=== PATIENT | female | born 1955 | race Caucasian/White ===

== ENCOUNTER 2017-12-29 19:42 | Emergency (ER) | payer MEDICARE | END 2017-12-29 20:44 | disposition left against medical advice (07) | LOC: ED 19:42 | DX: Z53.21 Procedure and treatment not carried out due to patient leaving prior to being seen by health care provider (principal) | CPT/HCPCS: 99283 ==

== ENCOUNTER 2018-12-18 08:01 | Day surgery (SDC) | payer MEDICARE ==
[2018-12-18] MEDS ORDERED: Xylocaine-Mpf 2% 5 Ml Vial IJ ONE (08:02)
[2018-12-18] MEDS ORDERED: DIPRIVAN 200 MG/20 ML IV ONE (08:02)
[2018-12-18] MEDS ORDERED: Depo-Medrol 40 MG/ML IM ONE (08:02)
--- NOTE | 2018-12-18 10:41 | XRAY ---
Indication: Left C3-C6 ROX. Intraoperative fluoroscopy was provided for 40 seconds. Single frontal digital spot image of the upper cervical spine submitted for interpretation limited by motion artifact and a few dental amalgams. There is a spinal needle tip projecting over the base of the odontoid process. Correlate with intraoperative findings/report.
--- NOTE | 2018-12-18 11:12 | XRAY ---
40 seconds fluoroscopy time in surgery for left C3-C6 ROX.
[2018-12-18] MEDS ORDERED: Lactated Ringers 1,000 ML IV ONE (14:28)
== END 2018-12-18 10:12 | disposition home or self-care (01) ==
LOC: SDC-PAIN 08:01
PROVIDERS: ATTEND Psychiatry & Neurology Pain Medicine
DX: M54.12 Radiculopathy, cervical region (principal); M47.812 Spondylosis without myelopathy or radiculopathy, cervical region; M47.892 Other spondylosis, cervical region; E11.9 Type 2 diabetes mellitus without complications; E05.00 Thyrotoxicosis with diffuse goiter without thyrotoxic crisis or storm; M19.90 Unspecified osteoarthritis, unspecified site; M79.7 Fibromyalgia
CPT/HCPCS: 64490; 64491; 64492; 72020; 77003; 82962; J1030; J2704

== ENCOUNTER 2019-10-15 09:35 | Day surgery (SDC) | payer MEDICARE ==
[2019-10-15] MEDS ORDERED: Decadron 4 MG INJ IJ ONE (09:36)
[2019-10-15] MEDS ORDERED: Marcaine 0.5% SDV 10 ML IJ ONE (09:36)
[2019-10-15] MEDS ORDERED: DIPRIVAN 200 MG/20 ML IV ONE (10:34)
[2019-10-15] MEDS ORDERED: Ketamine HCl 50 MG/ML ONE (10:34)
--- NOTE | 2019-10-15 12:25 | XRAY ---
Indication: Left C3-C6 MBB. Intraoperative fluoroscopy was provided for 18 seconds. 2 digital spot images submitted for interpretation demonstrates posterior needle tips projecting over the expected course of the left C3-C6 nerve roots. Correlate with intraoperative findings/report.
--- NOTE | 2019-10-15 12:38 | XRAY ---
18 seconds fluoroscopy time in surgery for left C3-C6 MBB.
[2019-10-15] MEDS ORDERED: Lactated Ringers 1,000 ML IV ONE (16:16)
== END 2019-10-15 11:05 | disposition home or self-care (01) ==
LOC: SDC-PAIN 09:35
PROVIDERS: ATTEND Psychiatry & Neurology Pain Medicine
DX: M47.812 Spondylosis without myelopathy or radiculopathy, cervical region (principal); I10 Essential (primary) hypertension; E11.9 Type 2 diabetes mellitus without complications; E05.90 Thyrotoxicosis, unspecified without thyrotoxic crisis or storm; G70.00 Myasthenia gravis without (acute) exacerbation; M79.7 Fibromyalgia; Z79.899 Other long term (current) drug therapy
CPT/HCPCS: 72020; 77002; J1100; J2704

== ENCOUNTER 2020-07-28 09:43 | Day surgery (SDC) | payer MEDICARE ==
[2020-07-28] MEDS ORDERED: Decadron 4 MG INJ IV ONE (09:44)
[2020-07-28] MEDS ORDERED: LIDOCAINE HCL 2% 100 MG/5 ML IJ ONE (09:44)
[2020-07-28] MEDS ORDERED: Ketamine HCl 50 MG/ML ONE (11:46)
[2020-07-28] MEDS ORDERED: DIPRIVAN 200 MG/20 ML IV ONE (11:46)
[2020-07-28] MEDS ORDERED: Lactated Ringers 1,000 ML IV ONE (15:30)
== END 2020-07-28 12:20 | disposition home or self-care (01) ==
LOC: SDC-PAIN 09:43
PROVIDERS: ATTEND Psychiatry & Neurology Pain Medicine
DX: Z53.09 Procedure and treatment not carried out because of other contraindication (principal); M47.812 Spondylosis without myelopathy or radiculopathy, cervical region; E11.9 Type 2 diabetes mellitus without complications; I10 Essential (primary) hypertension; G70.00 Myasthenia gravis without (acute) exacerbation; E05.90 Thyrotoxicosis, unspecified without thyrotoxic crisis or storm; M79.7 Fibromyalgia; Z79.899 Other long term (current) drug therapy
CPT/HCPCS: 64490; 64491; 64492; 82962; J1100; J2704

== ENCOUNTER 2020-08-04 10:08 | Day surgery (SDC) | payer MEDICARE ==
[~2020-08-04 10:08] MED LIST: DIPRIVAN 200 MG/20 ML IV ONE; Ketamine HCl 50 MG/ML ONE
[2020-08-04] MEDS ORDERED: Decadron 4 MG INJ IV ONE (10:09)
[2020-08-04] MEDS ORDERED: Xylocaine-Mpf 2% 5 Ml Vial IJ ONE (10:09)
--- NOTE | 2020-08-04 12:01 | XRAY ---
Indication: Right C3-C6 MBB. Intraoperative fluoroscopy was provided for 54 seconds. 3 digital spot images submitted for interpretation demonstrates posterior needle tips projecting over the expected right C3-C6 nerve roots. Correlate with intraoperative findings/report.
--- NOTE | 2020-08-04 12:58 | XRAY ---
54 seconds fluoroscopy time in surgery for right C3-C6 MBB.
[2020-08-04] MEDS ORDERED: Lactated Ringers 1,000 ML IV ONE (15:10)
== END 2020-08-04 11:38 | disposition home or self-care (01) ==
LOC: SDC-PAIN 10:08
PROVIDERS: ATTEND Psychiatry & Neurology Pain Medicine
DX: M47.812 Spondylosis without myelopathy or radiculopathy, cervical region (principal); E11.9 Type 2 diabetes mellitus without complications; I10 Essential (primary) hypertension; G70.00 Myasthenia gravis without (acute) exacerbation; E05.90 Thyrotoxicosis, unspecified without thyrotoxic crisis or storm; M79.7 Fibromyalgia; Z79.899 Other long term (current) drug therapy
CPT/HCPCS: 36415; 64490; 64491; 64492; 72020; 77002; 82962; J1100; J2704

== ENCOUNTER 2021-01-26 09:04 | Day surgery (SDC) | payer MEDICARE ==
[2021-01-26] MEDS ORDERED: Decadron 4 MG INJ IV ONE (09:05)
[2021-01-26] MEDS ORDERED: BUPIVACAINE 0.5% VIAL IJ ONE (09:05)
[2021-01-26] MEDS ORDERED: DIPRIVAN 200 MG/20 ML IV ONE (10:55)
[2021-01-26] MEDS ORDERED: Ketamine HCl 50 MG/ML ONE (10:56)
[2021-01-26] MEDS ORDERED: BREVIBLOC 100 MG/10 ML IV ONE (11:07)
[2021-01-26] MEDS ORDERED: LOPRESSOR 5 MG/5 ML INJECTION IV ONE (11:32)
--- NOTE | 2021-01-26 12:01 | XRAY ---
Indication: Right C2-C5 MBB. Intraoperative fluoroscopy provided for 41 seconds. 3 digital spot images submitted for interpretation demonstrates 2 posterior needle tips projecting over the right upper cervical spine. Needle tip levels unknown due to suboptimal technique. Correlate with intraoperative findings/report.
--- NOTE | 2021-01-26 12:11 | XRAY ---
41 seconds fluoroscopy time in surgery for right C2-C5 MBB.
[2021-01-26] MEDS ORDERED: Sodium Chloride 0.9% 1000 ML 1,000 ML ONE (12:26)
[2021-01-26 12:42] LABS: Absolute Neutrophil Ct (ANC) 7.03 (1.4-6.9); BASOPHIL % 0.2 % (0.0-0.4); Basophil (Absolute #) 0.02 (0-0.4); Eosinophil % 3.2 % (0.00-5.0); Eosinophil (Absolute #) 0.35 (0-0.5); Hematocrit 38.4 % (35-47); Hemoglobin 12.5 gm/dl (12.0-16.0); Lymphocyte (Absolute #) 3.06 (1.0-4.6); Lymphocytes % 27.8 % (24.0-44.0); Mean Cell Volume 105.8 fl (78-100); Mean Corpuscular Hemoglobin 34.4 pg (26-32); Mean Corpuscular Hgb Concent. 32.6 g/dl (32-36); Monocyte (Absolute #) 0.54 (0.0-1.3); Monocytes % 4.9 % (0.0-12.0); Neutrophil % 63.9 % (36.0-66.0); Platelet Count 319 K/mm3 (150-450); Red Blood Count 3.63 M/mm3 (4.1-5.4); Red Cell Distribution Width 12.9 % (11.5-14.0)
[2021-01-26 13:06] LABS: ALKALINE PHOSPHATASE 81 U/L (38-126); ANION GAP 8.4 MEQ/L (5-15); BLOOD UREA NITROGEN 21 mg/dL (7-17); CHLORIDE 107 mmol/L (98-107); Calcium 9.3 mg/dL (8.4-10.2); Carbon Dioxide 26 mmol/L (22-30); Creatinine 1 1.05 mg/dL (0.52-1.04); EST GLOMERULAR FILTRATION RATE 55.9 ML/MIN; Glucose 127 mg/dL (74-106); Potassium 4.4 mmol/L (3.5-5.1); SGOT/AST 27 U/L (14-36); SGPT/ALT 11 U/L (0-35); SODIUM 137 mmol/L (137-145); TROPONIN < 0.012 ng/mL (0.000-0.034); Total Protein 6.9 g/dL (6.3-8.2)
[2021-01-26 14:49] LABS: INFLUENZA A NEGATIVE (NEGATIVE); INFLUENZA B NEGATIVE (NEGATIVE); RESPIRATORY SYNCTIAL VIRUS NEGATIVE (Negative)
[2021-01-26] MEDS ORDERED: Lactated Ringers 1,000 ML IV ONE (15:01)
== END 2021-01-26 13:03 | disposition still patient (30) ==
LOC: SDC-PAIN 09:04
PROVIDERS: ATTEND Psychiatry & Neurology Pain Medicine
DX: M47.812 Spondylosis without myelopathy or radiculopathy, cervical region (principal); I10 Essential (primary) hypertension; E11.9 Type 2 diabetes mellitus without complications; E03.9 Hypothyroidism, unspecified; M79.7 Fibromyalgia; G70.00 Myasthenia gravis without (acute) exacerbation; Z79.899 Other long term (current) drug therapy
CPT/HCPCS: 0241U; 36415; 64490; 64491; 72020; 77002; 80053; 82947; 84443; 84484; 85025; 93005; 94760; J1100; J2704

== ENCOUNTER 2021-01-26 12:29 | Observation (INO) | payer MEDICARE ==
[2021-01-26] MEDS: Sodium Chloride 0.9% 1000 ML 1,000 ML IV SCH ×2 (14:27→21:32)
[2021-01-26] MEDS ORDERED: VENTOLIN COMMON CANISTER IH PRN (14:56)
[2021-01-26] MEDS ORDERED: PATIENT OWN MEDICATION IH PRN (14:58)
[2021-01-26] MEDS ORDERED: NON-FORMULARY ITEM (Gabapentin [Gabapentin] 800 MG) PO SCH (15:00)
[2021-01-26] MEDS ORDERED: hydroDIURIL 25 MG PO SCH (15:00)
[2021-01-26] MEDS: PERCOCET TABLET 5/325MG PO SCH ×3 (15:22→21:31)
[2021-01-26] MEDS: SYNTHROID 125 MCG PO SCH (15:23)
[2021-01-26] MEDS: ECOTRIN 81 MG PO SCH (15:24)
[2021-01-26] MEDS: Cardizem 30 MG PO SCH ×2 (15:25→21:31)
[2021-01-26] MEDS: Neurontin 400 MG PO SCH ×2 (15:25→21:31)
[2021-01-26] MEDS: ENOXAPARIN SODIUM SQ SCH (15:26)
[2021-01-26] MEDS: Zestril 20 MG PO SCH (15:28)
[2021-01-26] MEDS ORDERED: NON-FORMULARY ITEM (Oxycodone Hcl/Acetaminophen [Oxycodon-Acetaminophen 7.5-325] 1 EACH) PO SCH (17:00)
[2021-01-26] MEDS ORDERED: Zocor 10MG PO SCH (18:00)
[2021-01-26] MEDS ORDERED: NON-FORMULARY ITEM (Simvastatin [Simvastatin] 80 MG) PO SCH (18:00)
[2021-01-26] MEDS ORDERED: PATIENT OWN MEDICATION IH SCH (19:00)
[2021-01-26] MEDS ORDERED: FLUTICASONE PROPIONATE IH SCH (22:00)
[2021-01-27] MEDS: PATIENT OWN MEDICATION IH SCH ×2 (06:35→06:48)
[2021-01-27 07:15] VITALS: PULSE 74
--- NOTE | 2021-01-27 07:46 | ECHO ---
Transthoracic echocardiographic examination and color Doppler was done on 01/26/2021. INDICATION: New onset of atrial fibrillation. The left ventricle was only partially visualized demonstrating mild left ventricular hypokinesia with LV ejection fraction around 50%. The left ventricular thickness is normal. The mitral valve is partially seen but this opens adequately. No significant mitral regurgitation is seen. The aortic valve appears to open adequately. There is no significant gradient across the left ventricular outflow tract. The right sided chambers appear to be normal. No significant tricuspid regurgitation is seen. IMPRESSION: THIS IS A FAIRLY LIMITED STUDY WHICH PRECLUDES ADEQUATE ASSESSMENT OF INTRACARDIAC ANATOMY AND PHYSIOLOGY.
--- NOTE | 2021-01-27 08:47 | PCM.HP ---
History of Present Illness - Chief Complaint Chief Complaint: new onset afib History of Present Illness: is a 65 year old female who was admitted yesterday, she was having an epidural steroid injection in surgery and found to have abnormal heart rhythm. she has no cardiac history and has never seen a solar technician, no chest pain, no shortness of breath and feels normal. ekg was apparently done and suggestive of a fib, was sent to the floor. currently receiving po cardizem and prophylactic dose of lovenox, she has no complaints today. - Review of Systems Constitutional: No Fever, No Chills Respiratory: No Cough, No Short Of Breath Cardiac: No Chest Pain, No Edema, No Syncope Abdominal/Gastrointestinal: No Abdominal Pain, No Nausea, No Vomiting, No Diarrhea Skin: No Rash Medications & Allergies Home Medications: Home Medication List Albuterol Common Canister [Ventolin Common Canister] 2 puff IH Q4H PRN 01/26/21 [History Confirmed 01/26/21] Aspirin [Aspirin EC] 81 mg PO DAILY 01/26/21 [History Confirmed 01/26/21] Fluticasone Propionate [Flovent Diskus] 2 puff IH BID 01/26/21 [History C onfirmed 01/26/21] Gabapentin 800 mg PO TID 01/26/21 [History Confirmed 01/26/21] Levothyroxine Sodium [Synthroid] 125 mcg PO DAILY 01/26/21 [History Confirmed 01/26/21] Lisinopril/Hydrochlorothiazide [Lisinopril-Hctz 20-25 mg Tab] 1 each PO DAILY 01/26/21 [History Confirmed 01/26/21] Metformin HCl 500 mg PO BID 01/26/21 [History Confirmed 01/26/21] Oxycodone HCl/Acetaminophen [Oxycodon-Acetaminophen 7.5-325] 1 each PO QID 01/26/21 [History Confirmed 01/26/21] Simvastatin 80 mg PO EVENING MEAL 01/26/21 [History Confirmed 01/26/21] Allergies/Adverse Reactions: Allergies Allergy/AdvReac Type Severity Reaction Status Date / Time No Known Drug Allergies Allergy Unverified 01/26/21 13:42 - Past Medical History Past Medical History: No Neurological History: No Pertinent History ENT History: No Pertinent History Cardiac History: No Pertinent History Respiratory History: No Pertinent History Endocrine Medical History: Diabetes Type II, Hypothyroidism Musculoskelatal History: No Pertinent History GI Medical History: No Pertinent History History: No Pertinent History Pyscho-Social History: No Pertinent History Reproductive Disorders: No Pertinent History Comment: precancerous pap - Female History Are you now?: No - Past Surgical History Past Surgical History: Yes Other Surgical History: parathyroid removal - Social History Smoking Status: Current every day smoker Alcohol: None Drug Use: none - Physical Exam Vital Signs: Vital Signs - 24 hr Temp Pulse Resp BP Pulse Ox 01/27/21 07:15 98 F 74 20 116/79 96 01/27/21 06:50 70 18 95 01/27/21 04:30 98.0 F 79 19 85/54 97 01/27/21 00:00 98.0 F 97 H 21 128/62 96 01/26/21 20:00 97.8 F 90 20 124/58 96 01/26/21 17:46 90 18 96 01/26/21 15:13 96 H 18 96 01/26/21 14:14 97.7 F 101 H 18 137/83 96 01/26/21 13:06 97.7 F 101 H 18 137/83 96 General Appearance: no apparent distress, obese Neurologic Exam: alert, oriented x 3, cooperative Respiratory Exam: normal breath sounds, lungs clear, No respiratory distress Cardiovascular Exam: irregular, No murmur, No friction rub, No gallop Gastrointestinal/Abdomen Exam: soft, normal bowel sounds, No tenderness, No mass Skin Exam: normal color, warm, dry, No rash Results - Radiology Impressions Radiology Exams & Impressions: Radiology Procedures Category Date Time Status ECHO W/2D AND DOPPLER [US] Routine Exams 01/26/21 12:51 Draft - Other Procedures and Tests Respiratory Therapy 01/26/21 15:09 Respiratory Therapy Assessment DAILY 01/26/21 15:12 Respiratory MDI UD Respiratory MDI UD 01/27/21 08:40 EKG ROUTINE Assessment/Plan (1) Mobitz type 2 second degree atrioventricular block Current Visit: Yes Status: Acute Assessment & Plan: ekg reviewed from 01/26 at 11:37, p wave appear present with several random nonconducted p waves, no progressive prolongation of ME interval prior to dropped beat. ekg reviewed from 01/26 at 11:18 and suggests sinus tachycardia to me. I do not believe Ms Alex is in a fib, echo is pending. plan to consult [facility] for review Code(s): I44.1 - ATRIOVENTRICULAR BLOCK, SECOND DEGREE
[2021-01-27] MEDS: Cardizem 30 MG PO SCH (09:16)
[2021-01-27] MEDS: ECOTRIN 81 MG PO SCH (09:16)
[2021-01-27] MEDS: SYNTHROID 125 MCG PO SCH (09:17)
[2021-01-27] MEDS: Neurontin 400 MG PO SCH (09:17)
[2021-01-27] MEDS: Zestril 20 MG PO SCH (09:17)
[2021-01-27] MEDS: PERCOCET TABLET 5/325MG PO SCH ×2 (09:17→13:17)
[2021-01-27] MEDS: ENOXAPARIN SODIUM SQ SCH (09:18)
[2021-01-27] MEDS ORDERED: NON-FORMULARY ITEM (Lisinopril/Hydrochlorothiazide [Lisinopril-Hctz 20-25 Mg Tab] 1 EACH) PO SCH (10:00)
[2021-01-27 11:49] VITALS: BP 129/62; O2SAT 95
--- NOTE | 2021-01-27 14:16 | PCM.DS ---
Discharge Summary Date of Admission: 01/26/21 13:03 Admitting Physician: MILENA SHAHID Consults: Consults on Case 01/27/21 08:48 Consult Cardiology ROUTINE Primary Care Provider: MILENA SHAHID Allergies Allergies No Known Drug Allergies Allergy (Unverified 01/26/21 13:42) Hospital Summary - Hospital Course Hospital Course: patient was admitted with abnormal heart rhythm following injection with PMG, denies chest pain, no shortness of breath, feels well. in a flutter, rate controlled with cardizem and on eliquis. plan for outpatient sleep study and FABIO/cardioversion per cardiology recommendation - Vitals & Intake/Output Vital Signs: Vital Signs Temperature 98.1 F 01/27/21 11:49 Pulse Rate 74 01/27/21 11:49 Respiratory Rate 21 01/27/21 11:49 Blood Pressure 129/62 01/27/21 11:49 O2 Sat by Pulse Oximetry 95 01/27/21 11:49 Intake & Output: Intake & Output 01/25/21 01/26/21 01/27/21 01/28/21 11:59 11:59 11:59 11:59 Intake Total 1892 240 Output Total 600 Balance 1292 240 Weight 103.5 kg - Lab Lab Results-Last 24 Hrs: Lab Results-Last 24 Hours 01/27/21 Range/Units 09:30 Free T4 1.05 (0.76-1.46) ng/dL - Radiology Exams Ordered Rad Exams-Entire Visit: Radiology Procedures Category Date Time Status ECHO W/2D AND DOPPLER [US] Routine Exams 01/26/21 12:51 Completed - Procedures and Test Procedures and Tests throughout Hospitalization: Therapy Orders & Screens 01/26/21 14:24 Smoking Cessation Education ONCE Comment: Diagnosis: new onset afib Smoking Status: Current every day smoker Approximately how many cigarettes per day: 10 01/26/21 15:09 Respiratory Therapy Assessment DAILY Comment: Diagnosis: new onset afib 01/26/21 15:12 Respiratory MDI UD Comment: Diagnosis: new onset afib Respiratory MDI UD Comment: Diagnosis: new onset afib 01/27/21 08:40 EKG ROUTINE Comment: Diagnosis: new onset afib Discharge Exam General Appearance: no apparent distress, obese Respiratory Exam: normal breath sounds, lungs clear, No respiratory distress Cardiovascular Exam: irregular Gastrointestinal/Abdomen Exam: soft, No tenderness, No mass Extremity Exam: normal inspection, normal range of motion Final Diagnosis/Problem List - Final Discharge Diagnosis/Problem (1) Atrial flutter Current Visit: Yes Status: Acute Assessment & Plan: home on cardizem and eliquis, will f/u with cardiology. bp was slightly low overnight, change from lisinopril/hctz to lisinopril alone Code(s): I48.92 - UNSPECIFIED ATRIAL FLUTTER (2) Hypothyroid Current Visit: Yes Status: Acute Assessment & Plan: tsh was elevated, increase synthroid from 125 to 150mcg, will need repeat labs in 6 to [address] Shahid Code(s): E03.9 - HYPOTHYROIDISM, UNSPECIFIED - Discharge Disposition: Home, Self-Care Condition: Stable Prescriptions: New Diltiazem HCl 30 mg [Cardizem 30 MG] 60 mg PO BID #60 tablet Levothyroxine Sodium 150 Mcg [Synthroid 150 Mcg] 150 mcg PO QAM #30 tablet Lisinopril 20 mg [Zestril 20 MG] 20 mg PO DAILY #30 tablet Continue Gabapentin 800 mg PO TID Fluticasone Propionate [Flovent Diskus] 2 puff IH BID Albuterol Common Canister [Ventolin Common Canister] 2 puff IH Q4H PRN PRN Reason: sob Oxycodone HCl/Acetaminophen [Oxycodon-Acetaminophen 7.5-325] 1 each PO QID Simvastatin 80 mg PO EVENING MEAL Discontinued Lisinopril/Hydrochlorothiazide [Lisinopril-Hctz 20-25 mg Tab] 1 each PO DAILY Levothyroxine Sodium [Synthroid] 125 mcg PO DAILY Aspirin [Aspirin EC] 81 mg PO DAILY No Action Metformin HCl 500 mg PO BID Outpatient Orders: Sleep Study Facility: [facility], Location: RESPIRATORY THERAPY Follow up with: MILENA SHAHID [Primary Care Provider] - 1 Week PERLA ADAM [CONSULTING PHYSICIAN] -
[2021-01-27] MEDS ORDERED: PATIENT OWN MEDICATION IH SCH (19:00)
[2021-01-27] MEDS ORDERED: ELIQUIS 2.5 MG TABLET PO SCH (22:00)
[2021-01-28] MEDS ORDERED: PATIENT OWN MEDICATION IH SCH (07:00)
[2021-01-28] MEDS ORDERED: SYNTHROID 150 MCG PO SCH (10:00)
== END 2021-01-27 15:51 | disposition home or self-care (01) ==
LOC: MED SURG 13:03
PROVIDERS: ADMIT Family Medicine; ATTEND Family Medicine
DX: I48.92 Unspecified atrial flutter (principal); I44.1 Atrioventricular block, second degree; E03.9 Hypothyroidism, unspecified; Z79.899 Other long term (current) drug therapy; E11.9 Type 2 diabetes mellitus without complications; E78.5 Hyperlipidemia, unspecified; G47.10 Hypersomnia, unspecified; E66.9 Obesity, unspecified; Z79.01 Long term (current) use of anticoagulants
CPT/HCPCS: 0241U; 36415; 64490; 64491; 72020; 77002; 80053; 82947; 84439; 84443; 84484; 85025; 93005; 93268; 93306; 94640; 94760; G0378; Q3014; J1100; J1650; J2704; A9270-GY

== ENCOUNTER 2021-02-04 07:48 | Emergency (ER) | payer MEDICARE ==
--- NOTE | 2021-02-04 07:53 | ERPHSYRPT ---
- History of Present Illness Time Seen by Provider: 02/04/21 07:52 Historian: patient Exam Limitations: no limitations Physician History: This is a 65-year-old white female who is diabetic, has hypothyroidism as well as hypertension and presents with 1 day history of vomiting. Recently, the patient was caring for her grand child who happened to have flulike symptoms. Patient feels as though this is where her symptoms are coming from. Patient denies chest pain. She denies cough. She denies shortness of breath. She does have some myalgias and arthralgias as well as a headache. She has not had any diarrhea. Patient has not changed her medication regimen. Patient does not have any significant abdominal pain Timing/Duration: yesterday, other (Persistent) Activities at Onset: none Abdominal Pain Onset Location: other (none) Severity of Pain-Max: none Severity of Pain-Current: none Modifying Factors: Improves With: vomiting Associated Symptoms: loss of appetite, nausea, vomiting, No diarrhea, No fever/chills Previous symptoms: no prior history Allergies/Adverse Reactions: No Known Drug Allergies Allergy (Verified 02/04/21 08:04) Home Medications: Albuterol Common Canister [Ventolin Common Canister] 2 puff IH Q4H PRN 01/26/21 [History] Fluticasone Propionate [Flovent Diskus] 2 puff IH BID 01/26/21 [History] Gabapentin 800 mg PO TID 01/26/21 [History] Metformin HCl 500 mg PO BID 01/26/21 [History] Oxycodone HCl/Acetaminophen [Oxycodon-Acetaminophen 7.5-325] 1 each PO QID 01/26/21 [History] Simvastatin 80 mg PO EVENING MEAL 01/26/21 [History] Travel Risk - International Travel Have you traveled outside of the country in past 3 weeks: No - Coronavirus Screening Are you exhibiting any of the following symptoms?: Yes Symptoms: Vomiting/Diarrhea, Headaches/Body Aches/Fatigue Close contact with a COVID-19 positive Pt in past 14-21 Days: No - Review of Systems Constitutional: No Symptoms Eyes: No Symptoms Ears, Nose, & Throat: No Symptoms Respiratory: No Symptoms Cardiac: No Symptoms Abdominal/Gastrointestinal: Nausea, Vomiting, No Abdominal Pain, No Diarrhea Genitourinary Symptoms: No Symptoms Musculoskeletal: Arthralgias, Myalgias Neurological: No Symptoms Psychological: No Symptoms Endocrine: No Symptoms Hematologic/Lymphatic: No Symptoms Immunological/Allergic: No Symptoms All Other Systems: Reviewed and Negative - Past Medical History Pertinent Past Medical History: No Neurological History: No Pertinent History ENT History: No Pertinent History Cardiac History: No Pertinent History Respiratory History: No Pertinent History Endocrine Medical History: Diabetes Type II, Hypothyroidism Musculoskeletal History: No Pertinent History GI Medical History: No Pertinent History History: No Pertinent History Psycho-Social History: No Pertinent History Female Reproductive Disorders: No Pertinent History Other Medical History: precancerous pap - Past Surgical History Past Surgical History: Yes Other Surgical History: parathyroid removal - Social History Smoking Status: Current every day smoker Drug Use: none - Nursing Vital Signs Nursing Vital Signs: Initial Vital Signs Temperature 98.4 F 02/04/21 07:56 Pulse Rate 82 02/04/21 07:56 Respiratory Rate 16 02/04/21 07:56 Blood Pressure 124/74 02/04/21 07:56 O2 Sat by Pulse Oximetry 89 L 02/04/21 07:56 Pain Scale Pain Intensity 0 - Physical Exam General Appearance: no apparent distress, alert, obese Eye Exam: PERRL/EOMI, eyes nml inspection Ears, Nose, Throat Exam: normal ENT inspection, moist mucous membranes Neck Exam: normal inspection, non-tender, supple, full range of motion Respiratory Exam: normal breath sounds, lungs clear, airway intact, No chest tenderness, No respiratory distress Cardiovascular Exam: regular rate/rhythm, normal heart sounds, normal peripheral pulses Gastrointestinal/Abdomen Exam: soft, normal bowel sounds, No tenderness Pelvic Exam: not done Rectal Exam: not done Back Exam: normal inspection, normal range of motion, No CVA tenderness, No vertebral tenderness Neurologic Exam: alert, oriented x 3, cooperative, lens fabricating machine tender II-XII nml as tested, normal mood/affect, nml cerebellar function, nml station & gait, sensation nml Skin Exam: normal color, warm, dry Lymphatic Exam: No adenopathy SpO2 Interpretation: normal O2 Delivery: Room Air - Course Nursing assessment & vital signs reviewed: Yes Ordered Tests: Active Orders 24 hr Category Date Time Status IV Insertion STAT Care 02/04/21 08:02 Active AMYLASE Stat Lab 02/04/21 09:00 Completed CBC W DIFF Stat Lab 02/04/21 08:30 Completed CMP Stat Lab 02/04/21 09:00 Completed INFLUENZA A+B VANDANA Stat Lab 02/04/21 09:21 Completed LIPASE Stat Lab 02/04/21 09:00 Completed Lactic Acid Stat Lab 02/04/21 08:16 Completed [place] Screen Stat Lab 02/04/21 09:00 Completed T4 (Thyroxine) Stat Lab 02/04/21 09:00 Completed TSH [TSH, 3RD Generation] Stat Lab 02/04/21 08:03 Ordered UA W/RFX UR CULTURE Stat Lab 02/04/21 08:06 Completed Medication Summary Discontinued Medications Generic Name Dose Route Start Last Admin Trade Name Freq PRN Reason Stop Dose Admin Famotidine 20 mg 02/04/21 08:02 02/04/21 08:12 Pepcid 20 Mg Vial IV 02/04/21 08:03 20 mg STAT ONE Administration Famotidine Confirm 02/04/21 08:10 Pepcid 20 Mg Vial Administered 02/04/21 08:11 Dose 20 mg IV .STK-MED ONE Sodium Chloride 1,000 mls @ 999 mls/hr 02/04/21 08:02 02/04/21 08:11 Sodium Chloride 0.9% 1000 Ml IV 02/04/21 09:02 999 mls/hr .Q1H1M STA Administration Sodium Chloride Confirm 02/04/21 08:10 Sodium Chloride 0.9% 1000 Ml Administered 02/04/21 08:11 Dose 1,000 mls @ ud .ROUTE .STK-MED ONE Ondansetron HCl 4 mg 02/04/21 08:02 02/04/21 08:12 Zofran 4 Mg/2 Ml Vial IV 02/04/21 08:03 4 mg STAT ONE Administration Ondansetron HCl Confirm 02/04/21 08:09 Zofran 4 Mg/2 Ml Vial Administered 02/04/21 08:10 Dose 4 mg .ROUTE .STK-MED ONE Lab/Rad Data: Laboratory Result Diagrams 02/04/21 08:30 02/04/21 09:00 Laboratory Results 02/04/21 02/04/21 02/04/21 Range/Units 09:21 09:00 09:00 WBC (4.0-10.5) K/mm3 RBC (4.1-5.4) M/mm3 Hgb (12.0-16.0) gm/dl Hct (35-47) % MCV (78-100) fl MCH (26-32) pg MCHC (32-36) g/dl RDW (11.5-14.0) % Plt Count (150-450) K/mm3 MPV (7.5-11.0) fl Gran % (36.0-66.0) % Eos # (Auto) (0-0.5) Absolute Lymphs (auto) (1.0-4.6) Absolute Monos (auto) (0.0-1.3) Lymphocytes % (24.0-44.0) % Monocytes % (0.0-12.0) % Eosinophils % (0.00-5.0) % Basophils % (0.0-0.4) % Absolute Granulocytes (1.4-6.9) Basophils # (0-0.4) Sodium (137-145) mmol/L Potassium (3.5-5.1) mmol/L Chloride (98-107) mmol/L Carbon Dioxide (22-30) mmol/L Anion Gap (5-15) MEQ/L BUN (7-17) mg/dL Creatinine (0.52-1.04) mg/dL Estimated GFR ML/MIN Glucose (74-106) mg/dL Lactic Acid (0.4-2.0) Calcium (8.4-10.2) mg/dL Total Bilirubin (0.2-1.3) mg/dL AST (14-36) U/L ALT (0-35) U/L Alkaline Phosphatase (38-126) U/L Serum Total Protein (6.3-8.2) g/dL Albumin (3.5-5.0) g/dL Amylase (30-110) U/L Lipase (23-300) U/L Thyroxine (T4) 9.24 (5.53-10.96) ug/dL Urine Color (YELLOW) Urine Appearance (CLEAR) Urine pH (5-6) Ur Specific [place] (1.005-1.025) Urine Protein (Negative) Urine Ketones (NEGATIVE) Urine Blood (0-5) Gabriel/ul Urine Nitrite (NEGATIVE) Urine Bilirubin (NEGATIVE) Urine Urobilinogen (0-1) mg/dL Ur Leukocyte Esterase (NEGATIVE) Urine WBC (Auto) (0-5) /HPF Urine RBC (Auto) (0-2) /HPF U Epithel Cells (Auto) (FEW) /HPF Urine Bacteria (Auto) (NEGATIVE) /HPF Amorphous Crystals (NEGATIVE) /HPF Urine Mucus (Auto) (NEGATIVE) /HPF Urine Culture Reflexed (NO) Urine Glucose (NEGATIVE) mg/dL Monoscreen NEGATIVE (Negative) Influenza Type A Ag NEGATIVE (NEGATIVE) Influenza Type B Ag NEGATIVE (NEGATIVE) 02/04/21 02/04/21 02/04/21 Range/Units 09:00 08:30 08:16 WBC 10.9 H (4.0-10.5) K/mm3 RBC 3.71 L (4.1-5.4) M/mm3 Hgb 12.4 (12.0-16.0) gm/dl Hct 39.3 (35-47) % MCV 105.9 H (78-100) fl MCH 33.4 H (26-32) pg MCHC 31.6 L (32-36) g/dl RDW 12.3 (11.5-14.0) % Plt Count 351 (150-450) K/mm3 MPV 9.2 (7.5-11.0) fl Gran % 66.1 H (36.0-66.0) % Eos # (Auto) 0.07 (0-0.5) Absolute Lymphs (auto) 2.81 (1.0-4.6) Absolute Monos (auto) 0.81 (0.0-1.3) Lymphocytes % 25.7 (24.0-44.0) % Monocytes % 7.4 (0.0-12.0) % Eosinophils % 0.6 (0.00-5.0) % Basophils % 0.2 (0.0-0.4) % Absolute Granulocytes 7.23 H (1.4-6.9) Basophils # 0.02 (0-0.4) Sodium 134 L (137-145) mmol/L Potassium 4.1 (3.5-5.1) mmol/L Chloride 98 (98-107) mmol/L Carbon Dioxide 30 (22-30) mmol/L Anion Gap 10.3 (5-15) MEQ/L BUN 16 (7-17) mg/dL Creatinine 0.88 (0.52-1.04) mg/dL Estimated GFR > 60.0 ML/MIN Glucose 159 H (74-106) mg/dL Lactic Acid 1.6 (0.4-2.0) Calcium 9.6 (8.4-10.2) mg/dL Total Bilirubin 0.60 (0.2-1.3) mg/dL AST 23 (14-36) U/L ALT 18 (0-35) U/L Alkaline Phosphatase 86 (38-126) U/L Serum Total Protein 7.0 (6.3-8.2) g/dL Albumin 4.1 (3.5-5.0) g/dL Amylase 74 (30-110) U/L Lipase 85 (23-300) U/L Thyroxine (T4) (5.53-10.96) ug/dL Urine Color (YELLOW) Urine Appearance (CLEAR) Urine pH (5-6) Ur Specific [place] (1.005-1.025) Urine Protein (Negative) Urine Ketones (NEGATIVE) Urine Blood (0-5) Gabriel/ul Urine Nitrite (NEGATIVE) Urine Bilirubin (NEGATIVE) Urine Urobilinogen (0-1) mg/dL Ur Leukocyte Esterase (NEGATIVE) Urine WBC (Auto) (0-5) /HPF Urine RBC (Auto) (0-2) /HPF U Epithel Cells (Auto) (FEW) /HPF Urine Bacteria (Auto) (NEGATIVE) /HPF Amorphous Crystals (NEGATIVE) /HPF Urine Mucus (Auto) (NEGATIVE) /HPF Urine Culture Reflexed (NO) Urine Glucose (NEGATIVE) mg/dL Monoscreen (Negative) Influenza Type A Ag (NEGATIVE) Influenza Type B Ag (NEGATIVE) 02/04/21 Range/Units 08:06 WBC (4.0-10.5) K/mm3 RBC (4.1-5.4) M/mm3 Hgb (12.0-16.0) gm/dl Hct (35-47) % MCV (78-100) fl MCH (26-32) pg MCHC (32-36) g/dl RDW (11.5-14.0) % Plt Count (150-450) K/mm3 MPV (7.5-11.0) fl Gran % (36.0-66.0) % Eos # (Auto) (0-0.5) Absolute Lymphs (auto) (1.0-4.6) Absolute Monos (auto) (0.0-1.3) Lymphocytes % (24.0-44.0) % Monocytes % (0.0-12.0) % Eosinophils % (0.00-5.0) % Basophils % (0.0-0.4) % Absolute Granulocytes (1.4-6.9) Basophils # (0-0.4) Sodium (137-145) mmol/L Potassium (3.5-5.1) mmol/L Chloride (98-107) mmol/L Carbon Dioxide (22-30) mmol/L Anion Gap (5-15) MEQ/L BUN (7-17) mg/dL Creatinine (0.52-1.04) mg/dL Estimated GFR ML/MIN Glucose (74-106) mg/dL Lactic Acid (0.4-2.0) Calcium (8.4-10.2) mg/dL Total Bilirubin (0.2-1.3) mg/dL AST (14-36) U/L ALT (0-35) U/L Alkaline Phosphatase (38-126) U/L Serum Total Protein (6.3-8.2) g/dL Albumin (3.5-5.0) g/dL Amylase (30-110) U/L Lipase (23-300) U/L Thyroxine (T4) (5.53-10.96) ug/dL Urine Color YELLOW (YELLOW) Urine Appearance CLOUDY (CLEAR) Urine pH 5.0 (5-6) Ur Specific [place] 1.034 (1.005-1.025) Urine Protein 30 (Negative) Urine Ketones NEGATIVE (NEGATIVE) Urine Blood SMALL (0-5) Gabriel/ul Urine Nitrite NEGATIVE (NEGATIVE) Urine Bilirubin MODERATE (NEGATIVE) Urine Urobilinogen 2 (0-1) mg/dL Ur Leukocyte Esterase TRACE (NEGATIVE) Urine WBC (Auto) 6-10 (0-5) /HPF Urine RBC (Auto) 6-10 (0-2) /HPF U Epithel Cells (Auto) FEW (FEW) /HPF Urine Bacteria (Auto) RARE (NEGATIVE) /HPF Amorphous Crystals FEW (NEGATIVE) /HPF Urine Mucus (Auto) SLIGHT (NEGATIVE) /HPF Urine Culture Reflexed NO (NO) Urine Glucose NEGATIVE (NEGATIVE) mg/dL Monoscreen (Negative) Influenza Type A Ag (NEGATIVE) Influenza Type B Ag (NEGATIVE) - Progress Progress: improved, re-examined Counseled pt/family regarding: lab results, diagnosis, need for follow-up - Departure Departure Disposition: Home Clinical Impression: UTI (urinary tract infection) Condition: Stable Critical Care Time: No Referrals: MILENA GOLDSTEIN [Primary Care Provider] - Additional Instructions: Drink plenty fluids. Take medication as prescribed. Follow-up with your primary care physician for further management. Quarantine yourself until your COVID-19 test results come back. Prescriptions: Ondansetron ODT 4 MG [Zofran Odt 4 mg] 4 mg PO Q6H PRN PRN #10 tab.rapdis PRN Reason: Vomiting Ciprofloxacin [Cipro 500 MG] 500 mg PO BID #14 tablet
[2021-02-04] MEDS ORDERED: Pepcid 20 MG VIAL IV ONE ×2 (08:02→08:10)
[2021-02-04] MEDS ORDERED: Zofran 4 MG/2 ML VIAL IV ONE (08:02)
[2021-02-04] MEDS ORDERED: Sodium Chloride 0.9% 1000 ML 1,000 ML IV STA (08:02)
[2021-02-04] MEDS ORDERED: Zofran 4 MG/2 ML VIAL ONE (08:09)
[2021-02-04] MEDS ORDERED: Sodium Chloride 0.9% 1000 ML 1,000 ML ONE (08:10)
[2021-02-04 09:05] LABS: Absolute Neutrophil Ct (ANC) 7.23 (1.4-6.9); BASOPHIL % 0.2 % (0.0-0.4); Basophil (Absolute #) 0.02 (0-0.4); Eosinophil % 0.6 % (0.00-5.0); Eosinophil (Absolute #) 0.07 (0-0.5); Hematocrit 39.3 % (35-47); Hemoglobin 12.4 gm/dl (12.0-16.0); Lymphocyte (Absolute #) 2.81 (1.0-4.6); Lymphocytes % 25.7 % (24.0-44.0); Mean Cell Volume 105.9 fl (78-100); Mean Corpuscular Hemoglobin 33.4 pg (26-32); Mean Corpuscular Hgb Concent. 31.6 g/dl (32-36); Mean Platelet Volume 9.2 fl (7.5-11.0); Monocyte (Absolute #) 0.81 (0.0-1.3); Monocytes % 7.4 % (0.0-12.0); Neutrophil % 66.1 % (36.0-66.0); Platelet Count 351 K/mm3 (150-450); Red Blood Count 3.71 M/mm3 (4.1-5.4); Red Cell Distribution Width 12.3 % (11.5-14.0); White Blood Count 10.9 K/mm3 (4.0-10.5)
[2021-02-04 09:18] LABS: Amourphous Crystal FEW /HPF (NEGATIVE); Appearance CLOUDY (CLEAR); Bacteria RARE /HPF (NEGATIVE); Bilirubin MODERATE (NEGATIVE); Blood SMALL Ery/ul (0-5); Epithelial Cells FEW /HPF (FEW); Glucose NEGATIVE (NEGATIVE); Ketones NEGATIVE (NEGATIVE); Leukocyte Esterase TRACE (NEGATIVE); Mucus SLIGHT /HPF (NEGATIVE); Nitrite NEGATIVE (NEGATIVE); Protein,Urine Dip 30 (Negative); Specific Gravity 1.034 (1.005-1.025); Urobilinogen 2 mg/dL (0-1)
[2021-02-04 09:24] LABS: ALBUMIN 4.1 g/dL (3.5-5.0); ALKALINE PHOSPHATASE 86 U/L (38-126); AMYLASE 74 U/L (30-110); ANION GAP 10.3 MEQ/L (5-15); BLOOD UREA NITROGEN 16 mg/dL (7-17); CHLORIDE 98 mmol/L (98-107); Calcium 9.6 mg/dL (8.4-10.2); Carbon Dioxide 30 mmol/L (22-30); Creatinine 1 0.88 mg/dL (0.52-1.04); EST GLOMERULAR FILTRATION RATE > 60.0 ML/MIN; Glucose 159 mg/dL (74-106); LIPASE 85 U/L (23-300); Potassium 4.1 mmol/L (3.5-5.1); SGOT/AST 23 U/L (14-36); SGPT/ALT 18 U/L (0-35); SODIUM 134 mmol/L (137-145)
[2021-02-04 09:33] VITALS: BP 136/77; PULSE 77; O2SAT 98
[2021-02-04 09:50] LABS: INFLUENZA A NEGATIVE (NEGATIVE); INFLUENZA B NEGATIVE (NEGATIVE)
[2021-02-04] MEDS ORDERED: Levofloxacin 500 MG Tablet PO ONE (09:56)
[2021-02-04] MEDS ORDERED: Sodium Chloride 0.9% 500 ML 500 ML IV ONE (09:56)
== END 2021-02-04 10:45 | disposition home or self-care (01) ==
LOC: ED 07:48
DX: R11.2 Nausea with vomiting, unspecified (principal); N39.0 Urinary tract infection, site not specified; R51.9 Headache, unspecified; E11.9 Type 2 diabetes mellitus without complications; E03.9 Hypothyroidism, unspecified; I10 Essential (primary) hypertension; J44.9 Chronic obstructive pulmonary disease, unspecified; R53.83 Other fatigue; F17.210 Nicotine dependence, cigarettes, uncomplicated; Z79.899 Other long term (current) drug therapy
CPT/HCPCS: 36000; 36415; 80053; 81001; 82150; 83605; 83690; 84436; 84443; 85025; 86308; 87400; 96360; 96374; 96375; 99284; U0003; J2405; A9270-GY

== ENCOUNTER 2021-04-27 10:50 | Day surgery (SDC) | payer MEDICARE ==
[2021-04-27] MEDS ORDERED: BUPIVACAINE 0.5% VIAL IJ ONE (10:51)
[2021-04-27] MEDS ORDERED: Xylocaine 1% Vial 30 ML PF IJ ONE (10:51)
[2021-04-27] MEDS ORDERED: Decadron 4 MG INJ IV ONE (10:51)
--- NOTE | 2021-04-27 13:07 | XRAY ---
35 seconds fluoroscopy time in surgery for right C3-C5 RFA.
--- NOTE | 2021-04-27 13:07 | XRAY ---
Indication: Right C3-C5 RFA. Intraoperative fluoroscopy provided for 35 seconds. Single lateral digital spot image submitted for interpretation demonstrates posterior needle tips projecting over the expected C3-C5 nerve roots. Correlate with intraoperative findings/report.
[2021-04-27] MEDS ORDERED: Lactated Ringers 1,000 ML IV ONE (15:56)
== END 2021-04-27 12:49 | disposition home or self-care (01) ==
LOC: SDC-PAIN 10:50
PROVIDERS: ATTEND Psychiatry & Neurology Pain Medicine
DX: M47.812 Spondylosis without myelopathy or radiculopathy, cervical region (principal); I10 Essential (primary) hypertension; E03.9 Hypothyroidism, unspecified; I48.91 Unspecified atrial fibrillation; M79.7 Fibromyalgia; R73.03 Prediabetes; G70.00 Myasthenia gravis without (acute) exacerbation; F41.9 Anxiety disorder, unspecified; F32.9 Major depressive disorder, single episode, unspecified; Z79.01 Long term (current) use of anticoagulants; Z79.899 Other long term (current) drug therapy
CPT/HCPCS: 64633; 64634; 72020; 77002; 82947; J1100; J2001

== ENCOUNTER 2023-11-02 18:53 | Emergency (ER) | payer MEDICARE ==
[2023-11-02 19:55] VITALS: TEMP 97
[2023-11-02] MEDS ORDERED: Zofran 4 MG/2 ML VIAL IV ONE (20:26)
[2023-11-02] MEDS ORDERED: Sodium Chloride 0.9% 1000 ML 1,000 ML IV STA (20:26)
--- NOTE | 2023-11-02 20:26 | ERPHSYRPT ---
- History of Present Illness Time Seen by Provider: 11/02/23 20:15 Historian: patient Exam Limitations: no limitations Patient Subjective Stated Complaint: pt states "I have been throwing up all day nonstop." Triage Nursing Assessment: pt ambulatory to bed by self with steady gait holding empty emesis bag, grandson at bedside, pt alert and oriented x3, skin pwd, pt c/o vomiting that started today after her ozempic dosage was increased today by Dr. Funez, pt denies any other symptoms other than her chronic neck and back pain from her fibromyalgia. Physician History: Pt states she has had nausea and vomited x8 today without blood after increasing her ozempic. LBM was yesterday & wnl. Pt denies chest pain, shortness of air, fever; admits to cough for the past month for which she was treated. Allergies/Adverse Reactions: tape Allergy (Mild, Uncoded 11/02/23 19:47) Skin Irritation Home Medications: Albuterol Common Canister [Ventolin Common Canister] 2 puff IH Q4H PRN 01/26/21 [History] Fluticasone Propionate [Flovent Diskus] 2 puff IH BID 01/26/21 [History] Gabapentin 800 mg PO TID 01/26/21 [History] Metformin HCl 500 mg PO BID 01/26/21 [History] Oxycodone HCl/Acetaminophen [Oxycodone-Acetaminophn 7.5-325] 1 each PO QID 01/26/21 [History] Simvastatin 80 mg PO EVENING MEAL 01/26/21 [History] Apixaban [Eliquis] 5 mg PO BID 11/02/23 [History] Losartan Potassium 50 mg PO DAILY 11/02/23 [History] Hx Tetanus, Diphtheria Vaccination/Date Given: No Hx Influenza Vaccination/Date Given: Yes Hx Pneumococcal Vaccination/Date Given: Yes Immunizations Up to Date: No Travel Risk - International Travel Have you traveled outside of the country in past 3 weeks: No - Coronavirus Screening Are you exhibiting any of the following symptoms?: No Close contact with a COVID-19 positive Pt in past 14-21 Days: No - Vaccine Status Have you recieved a Covid-19 vaccination: Yes Bark Fitter: NERI - Vaccination Dates Date of 2cond Vaccination (if applicable): unk - Review of Systems Constitutional: No Fever Respiratory: Cough, No Dyspnea Cardiac: No Chest Pain Abdominal/Gastrointestinal: Nausea, Vomiting Musculoskeletal: Back Pain (chronic), Neck Pain (chronic) - Past Medical History Pertinent Past Medical History: Yes Neurological History: Migraines ENT History: No Pertinent History Cardiac History: High Cholesterol, Hypertension Respiratory History: COPD Endocrine Medical History: Diabetes Type II, Hypothyroidism Musculoskeletal History: No Pertinent History GI Medical History: No Pertinent History History: No Pertinent History Psycho-Social History: No Pertinent History Female Reproductive Disorders: No Pertinent History Other Medical History: precancerous pap - Past Surgical History Past Surgical History: Yes Neuro Surgical History: No Pertinent History Cardiac: No Pertinent History Respiratory: No Pertinent History Gastrointestinal: No Pertinent History Genitourinary: No Pertinent History Musculoskeletal: No Pertinent History Female Surgical History: No Pertinent History Other Surgical History: parathyroid removal - Social History Smoking Status: Current every day smoker Exposure to second hand smoke: No Drug Use: none Patient Lives Alone: Yes - Nursing Vital Signs Nursing Vital Signs: Initial Vital Signs Temperature 97.0 F 11/02/23 19:47 Pulse Rate 82 11/02/23 19:47 Respiratory Rate 18 11/02/23 19:47 Blood Pressure 175/94 11/02/23 19:47 O2 Sat by Pulse Oximetry 95 11/02/23 19:47 Pain Scale Pain Intensity 8 - Physical Exam General Appearance: alert Eye Exam: eyes nml inspection Ears, Nose, Throat Exam: TMs normal, pharynx normal Neck Exam: normal inspection Respiratory Exam: No respiratory distress Cardiovascular Exam: normal heart sounds Gastrointestinal/Abdomen Exam: soft, No normal bowel sounds (B.S. moderately hyperactive and normotonic) Back Exam: normal inspection Extremity Exam: No pedal edema Neurologic Exam: alert, cooperative Skin Exam: warm, dry SpO2 Interpretation: normal SpO2: 95 O2 Delivery: Room Air - Course Nursing assessment & vital signs reviewed: Yes - CT Exams Abdomen/Pelvis CT Interpretation: Tele-radiologist Report (Overdistended gallbladder, otherwise rest of the abdominopelvic structures appear unremarkable within the limitations of noncontrast study.) Ordered Tests: Active Orders 24 hr Category Date Time Status IV Insertion STAT Care 11/02/23 20:26 Active ABDOMEN AND PELVIS W/0 CONTRAS [CT] Stat Exams 11/02/23 20:28 Completed AMYLASE Stat Lab 11/02/23 19:55 Completed CBC W DIFF Stat Lab 11/02/23 19:55 Completed CMP Stat Lab 11/02/23 19:55 Completed CULTURE,URINE Stat Lab 11/02/23 22:15 Received LIPASE Stat Lab 11/02/23 19:55 Completed UA W/RFX UR CULTURE Stat Lab 11/02/23 22:15 Completed Medication Summary Discontinued Medications Generic Name Dose Route Start Last Admin Trade Name Chaim PRN Reason Stop Dose Admin Sodium Chloride 1,000 mls @ 999 mls/hr 11/02/23 20:26 11/02/23 22:18 Sodium Chloride 0.9% 1000 Ml IV 11/02/23 21:26 Infused .Q1H1M STA Infusion Sodium Chloride Confirm 11/02/23 20:56 Sodium Chloride 0.9% 1000 Ml Administered 11/02/23 20:57 Dose 1,000 mls @ ud .ROUTE .STK-MED ONE Ondansetron HCl 4 mg 11/02/23 20:26 11/02/23 21:01 Ondansetron Hcl 4 Mg/2 Ml Vial IV 11/02/23 20:27 4 mg STAT ONE Administration Ondansetron HCl Confirm 11/02/23 20:56 Ondansetron Hcl 4 Mg/2 Ml Vial Administered 11/02/23 20:57 Dose 4 mg .ROUTE .STK-MED ONE Lab/Rad Data: Laboratory Result Diagrams 11/02/23 19:55 11/02/23 19:55 Laboratory Results 11/02/23 11/02/23 11/02/23 Range/Units 22:15 19:55 19:55 WBC 13.5 H (4.0-10.5) x10^3/uL RBC 5.49 H (4.1-5.4) x10^6/uL Hgb 17.6 H (12.0-16.0) g/dL Hct 54.6 H (35-47) % MCV 99.5 (78-100) fL MCH 32.1 H (26-32) pg MCHC 32.2 (32-36) g/dL RDW 12.0 (11.5-14.0) % Plt Count 350 (150-450) x10^3/uL MPV 10.1 (7.5-11.0) fL Gran % 72.1 H (36.0-66.0) % Immature Gran % (Auto) 0.3 (0.00-0.4) % Nucleat RBC Rel Count 0.0 (0.00-0.1) % Eos # (Auto) 0.04 (0-0.5) x10^3/uL Immature Gran # (Auto) 0.04 H (0.00-0.03) x10^3u/L Absolute Lymphs (auto) 2.87 (1.0-4.6) x10^3/uL Absolute Monos (auto) 0.78 (0.0-1.3) x10^3/uL Absolute Nucleated RBC 0.00 (0.00-0.01) x10^3u/L Lymphocytes % 21.3 L (24.0-44.0) % Monocytes % 5.8 (0.0-12.0) % Eosinophils % 0.3 (0.00-5.0) % Basophils % 0.2 (0.0-0.4) % Absolute Granulocytes 9.74 H (1.4-6.9) x10^3/uL Basophils # 0.03 (0-0.4) x10^3/uL Sodium 138 (137-145) mmol/L Potassium 4.5 (3.5-5.1) mmol/L Chloride 99 (98-107) mmol/L Carbon Dioxide 22 (22-30) mmol/L Anion Gap 20.7 H (5-15) MEQ/L BUN 18 H (7-17) mg/dL Creatinine 0.86 (0.52-1.04) mg/dL Estimated GFR 73.5 ML/MIN Glucose 154 H (74-106) mg/dL Calcium 10.8 H (8.4-10.2) mg/dL Total Bilirubin 0.80 (0.2-1.3) mg/dL AST 25 (14-36) U/L ALT 14 (0-35) U/L Alkaline Phosphatase 125 (38-126) U/L Serum Total Protein 7.9 (6.3-8.2) g/dL Albumin 4.8 (3.5-5.0) g/dL Amylase 103 (30-110) U/L Lipase 152 (23-300) U/L Urine Color Yellow (Yellow) Urine Appearance Clear (Clear) Urine pH 5.5 (4.6-8.0) Ur Specific [place] >=1.030 A (1.005-1.030) Urine Protein 30 (Negative) Urine Glucose (UA) >=1000 A (Negative) mg/dL Urine Ketones 80 A (Negative) Urine Blood Small A (Negative) Urine Nitrite Negative (Negative) Urine Bilirubin Negative (Negative) Urine Urobilinogen 1.0 A (0.2) mg/dL Ur Leukocyte Esterase Negative (Negative) U Hyaline Cast (Auto) 0-2 (0-2) /LPF Urine Microscopic RBC 3-5 (0-5) /HPF Urine Microscopic WBC 3-5 (0-5) /HPF Ur Epithelial Cells Few (None Seen) /HPF Urine Bacteria Rare A (None Seen) /HPF Urine Culture Reflexed YES (NO) - Progress Progress: improved Counseled pt/family regarding: lab results, diagnosis, rad results Medical Desision Making - Diagnostic Testing Diagnostic test were ordered, analyzed, and reviewed by me: Yes Radiological Interpretation: Teleradiologist Report - Departure Departure Disposition: Home Clinical Impression: Vomiting Condition: Stable Critical Care Time: No Referrals: BARBIE YOU [Primary Care Provider] - Follow up/PCP as directed Instructions: Nausea and Vomiting, Adult ED Additional Instructions: Consider stopping ozempic. Return to [facility] for an outpatient gallbladder ultrasound. Prescriptions: Ondansetron ODT 4 MG [Zofran Odt 4 mg] 4 mg PO Q6H PRN PRN #10 tablet PRN Reason: Nausea
[2023-11-02 20:32] LABS: Absolute Neutrophil Ct (ANC) 9.74 x10^3/uL (1.4-6.9); BASOPHIL % 0.2 % (0.0-0.4); Basophil (Absolute #) 0.03 x10^3/uL (0-0.4); Eosinophil % 0.3 % (0.00-5.0); Eosinophil (Absolute #) 0.04 x10^3/uL (0-0.5); Hematocrit 54.6 % (35-47); Hemoglobin 17.6 g/dL (12.0-16.0); IMMATURE GRAN # 0.04 x10^3u/L (0.00-0.03); IMMATURE GRAN % 0.3 % (0.00-0.4); Lymphocyte (Absolute #) 2.87 x10^3/uL (1.0-4.6); Lymphocytes % 21.3 % (24.0-44.0); Mean Cell Volume 99.5 fL (78-100); Mean Corpuscular Hemoglobin 32.1 pg (26-32); Mean Corpuscular Hgb Concent. 32.2 g/dL (32-36); Mean Platelet Volume 10.1 fL (7.5-11.0); Monocyte (Absolute #) 0.78 x10^3/uL (0.0-1.3); Monocytes % 5.8 % (0.0-12.0); Neutrophil % 72.1 % (36.0-66.0); Platelet Count 350 x10^3/uL (150-450); Red Blood Count 5.49 x10^6/uL (4.1-5.4); White Blood Count 13.5 x10^3/uL (4.0-10.5)
[2023-11-02 20:39] LABS: ALBUMIN 4.8 g/dL (3.5-5.0); ANION GAP 20.7 MEQ/L (5-15); BILIRUBIN,TOTAL 0.8 mg/dL (0.2-1.3); Calcium 10.8 mg/dL (8.4-10.2); Creatinine 1 0.86 mg/dL (0.52-1.04); EST GLOMERULAR FILTRATION RATE 73.5 ML/MIN; Potassium 4.5 mmol/L (3.5-5.1); Total Protein 7.9 g/dL (6.3-8.2)
[2023-11-02] MEDS ORDERED: Zofran 4 MG/2 ML VIAL ONE (20:56)
[2023-11-02] MEDS ORDERED: Sodium Chloride 0.9% 1000 ML 1,000 ML ONE (20:56)
[2023-11-02 21:25] VITALS: RESP 18
--- NOTE | 2023-11-02 21:42 | XRAY ---
CLINICAL HISTORY:vomiting COMPARISON:None. TECHNIQUE:A CT scan of the abdomen and pelvis was performed without IV contrast. Coronal and sagittal reconstructive images were also obtained. FINDINGS: Abdomen: The liver is of average size. No focal or diffuse parenchymal abnormality. The intrahepatic biliary radicals and the bile ducts are normal. The gallbladder appears overdistended. There is no evidence of wall thickening/ pericholecystic collection. The spleen, pancreas, and adrenal glands are unremarkable. The kidneys are normal in size and shape. No calculi or hydronephrosis. The ascending colon, the transverse colon, the descending colon, visualized small bowel loops are unremarkable. The appendix appears normal. No inflammatory changes seen in the right iliac fossa region. There is no evidence of significant enlargement of the mesenteric or retroperitoneal lymph nodes. The abdominal aorta and its branches show atherosclerotic changes with calcified plaques. Pelvis: The urinary bladder is unremarkable. The rectosigmoid colon is unremarkable. The uterus is atrophied. No adnexal mass. The lumbar spine shows degenerative changes, most significant at L4-L5 and L5-S1 levels with near complete reduction of intervertebral disc spaces and vacuum phenomena. IMPRESSION: Overdistended Gallbladder, otherwise rest of the abdominopelvic structures appear unremarkable within the limitations of noncontrast study. Ultrasound may be recommended for assessment of gallbladder. Clinical correlation is suggested. Electronically Signed by: Peng Leslie MD. (11/02/2023 21:37:34 EST)
[2023-11-02 22:41] LABS: Appearance Clear (Clear); Bilirubin Negative (Negative); Blood Small (Negative); Epithelial Cells Few /HPF (None Seen); Glucose, Urine >=1000 mg/dL (Negative); Ketones 80 (Negative); Leukocyte Esterase Negative (Negative); Nitrite Negative (Negative); Ph 5.5 (4.6-8.0); Protein,Urine Dip 30 (Negative); Specific Gravity >=1.030 (1.005-1.030)
[2023-11-02 22:42] LABS: ADD URINE CULTURE? YES (NO); Bacteria Rare /HPF (None Seen); Hyaline Casts 0-2 /LPF (0-2)
[2023-11-02 23:35] VITALS: BP 145/89; PULSE 68
[2023-11-02 23:39] VITALS: O2SAT 95
== END 2023-11-02 23:51 | disposition home or self-care (01) ==
LOC: ED 18:53
DX: R11.2 Nausea with vomiting, unspecified (principal); E78.5 Hyperlipidemia, unspecified; I10 Essential (primary) hypertension; E11.9 Type 2 diabetes mellitus without complications; Z79.84 Long term (current) use of oral hypoglycemic drugs; Z79.85 Long-term (current) use of injectable non-insulin antidiabetic drugs; Z79.01 Long term (current) use of anticoagulants; Z79.899 Other long term (current) drug therapy; Z72.0 Tobacco use
CPT/HCPCS: 36000; 36415; 74176; 80053; 81001; 82150; 83690; 85025; 87086; 96360; 96374; 99284; J2405

== ENCOUNTER 2024-12-15 08:30 | Day surgery (SDC) | payer MEDICARE ==
--- NOTE | 2024-12-15 08:29 | HP ---
HISTORY OF PRESENT ILLNESS: A 69-year-old with multiple medical problems including history of Atrial fibrillation, hypertension, diabetes, hyperlipidemia, COPD. Had a positive Shield test, is in need of colonoscopy. No bloody stools. Family history negative for colon cancer. PAST SURGICAL HISTORY: Adenoidectomy. Thyroidectomy in the past. FAMILY HISTORY: Parkinson's. Negative for colon cancer. SOCIAL HISTORY: No smoking. No alcohol abuse. MEDICATIONS: Simvastatin, oxycodone, losartan, diltiazem, apixaban for history of atrial fibrillation, albuterol sulfate, gabapentin, metformin, vitamin D3, Mounjaro, levothyroxine, levocetirizine. REVIEW OF SYSTEMS: Twelve systems reviewed. Pertinent for multiple medical problems noted above. PHYSICAL EXAMINATION: GENERAL: Height 5 feet. BMI 33.2. No acute distress. HEENT: Sclerae nonicteric. NECK: No JVD. CHEST: Equal excursion, nonlabored breathing. CARDIOVASCULAR: Regular rate and rhythm. ABDOMEN: Soft. EXTREMITIES: No cyanosis or edema. NEUROLOGIC: Alert. PSYCHIATRIC: Appropriate mood and affect. SKIN: Dry. RECTAL: Deferred until time of endoscopy exam. IMPRESSION: Positive Shield test. Patient is in need of diagnostic colonoscopy. The risk sheet was shown to her. Risks were explained in detail including bleeding and infection; risk of bowel injury or perforation; risk of missed or nondiagnosis or incomplete exam possibly requiring barium enema or other studies or procedures; general risk of anesthesia or sedation; risk of bowel prep. We will proceed with outpatient colonoscopy under MAC anesthesia. Otherwise, continue medications for COPD, lipids, hypertension, diabetes, heart disease, thyroid disease.
[2024-12-15] MEDS ORDERED: Lactated Ringers 1,000 ML IV ONE (08:42)
[2024-12-15] MEDS: Lactated Ringers 1,000 ML IV SCH (08:45)
[2024-12-15 09:16] LABS: Hemoglobin 13.9 g/dL (11.2-15.7); Mean Cell Volume 93.6 fL (79.4-94.8); Mean Corpuscular Hemoglobin 31.7 pg (25.6-32.2); Mean Corpuscular Hgb Concent. 33.9 g/dL (32.2-35.5); Mean Platelet Volume 9.5 fL (9.4-12.3); Platelet Count 345 x10^3/uL (182-369); Red Blood Count 4.38 x10^6/uL (3.93-5.22); Red Cell Distribution Width 12.8 % (11.7-14.4); White Blood Count 10.6 x10^3/uL (3.98-10.04)
[2024-12-15 09:30] LABS: ANION GAP 9.1 MEQ/L (5-15); Calcium 9.2 mg/dL (8.4-10.2); Creatinine 1 0.68 mg/dL (0.52-1.04); EST GLOMERULAR FILTRATION RATE 94.2 ML/MIN
[2024-12-15] MEDS ORDERED: propofoL IV ONE ×2 (10:42→11:04)
[2024-12-15] MEDS ORDERED: Versed 2 MG/2 ML Injection ONE (10:42)
[2024-12-15 11:51] VITALS: RESP 16; O2SAT 98
[2024-12-15 12:04] VITALS: TEMP 97.6
[2024-12-15 12:18] VITALS: BP 120/30; PULSE 72
--- NOTE | 2024-12-16 09:20 | OP ---
SURGERY DATE/TIME: 12/15/2024 [id number] PREOPERATIVE DIAGNOSIS: Positive Shield test, needs colonoscopy. POSTOPERATIVE DIAGNOSES: 1) Very poor bowel prep. 2) Very limited exam. 3) No evidence of any obstructing lesions. 4) A 4 mm polyp, ascending colon. 5) A 2 mm polyp, cecum. PROCEDURE: 1) Colonoscopy to cecum. 2) Hot snare polypectomy, ascending colon polyp. 3) Hot biopsy polypectomy, cecal polyp. SURGEON: Marlon Crane MD PREPARATION: Poor. WITHDRAWAL TIME: 12 minutes. ASA CLASS: 3. INDICATIONS: Above. Consent obtained. DESCRIPTION OF PROCEDURE AND FINDINGS: Patient was taken to endoscopy room. MAC anesthesia induced. After official time-out, no disagreement in planned procedure. Digital rectal exam did not reveal any rectal masses. Videocolonoscope was passed up through a poorly-prepped colon. A large amount of liquidy semisolid and some solid stool around to the cecum. Appendiceal orifice area and valve well visualized, photo documented. There was a 2 mm polyp that could be seen in the cecum that was removed with hot biopsy forceps. There was about a 4 mm polyp in the proximal ascending colon was removed with hot snare polypectomy. Scope was slowly, carefully withdrawn over the next 12 minutes suctioning and irrigating stool out as well as possible. There were no signs of any obvious obstructing masses but a very limited secondary to poor prep for small or medium size lesions. Scope was withdrawn. There was no family here in the waiting room to discuss any findings with. Await path report though would recommend followup colonoscopy given her poor prep.
== END 2024-12-15 12:16 | disposition home or self-care (01) ==
LOC: SDC 08:30
PROVIDERS: ATTEND Surgery
DX: D12.0 Benign neoplasm of cecum (principal); D12.2 Benign neoplasm of ascending colon; R76.12 Nonspecific reaction to cell mediated immunity measurement of gamma interferon antigen response without active tuberculosis; I10 Essential (primary) hypertension; E11.9 Type 2 diabetes mellitus without complications
CPT/HCPCS: 36415; 80048; 85027; 93005; J2250; J2704

== ENCOUNTER 2025-03-23 18:40 | Emergency (ER) | payer MEDICARE ==
[2025-03-23 18:48] VITALS: TEMP 97.4
--- NOTE | 2025-03-23 18:59 | ERPHSYRPT ---
- History of Present Illness Historian: patient Exam Limitations: no limitations Patient Subjective Stated Complaint: C/O sudden onset of SOB this evening while sitting in a car between 5:30pm and 6pm (stated to nurse). Told Dr. Sutherland that episode began around 6:15pm. States chest pressure/pain began immediately after the SOB began and then she vomitted X 1. Triage Nursing Assessment: Patient assisted out of her car by staff. She is alert and oriented. Patient talkative, speaking in full sentences. Does not appear SOB. Skin tone normal. SPEARS WNBonnie. Dr. Sutherland came into room during the end of the nurse assessment to complete his assessment. MD listened to patient's lungs. Physician History: Patient has chest pain started acutely around 6:15 PM. Lasted about 20 minutes. She said was in her central chest that was heavy. She ended up throwing up. She said she had a hard time breathing because of the pain. Nothing made the symptoms better or worse. They have resolved completely now. She is not short of breath. She does not have any fever or chills. She does not have any abdominal pain or nausea at this time either. She has multiple risk factors for coronary disease. She does not have any dyspnea at this time. Nitro Today/Relief: no nitro taken today Aspirin Treatment Today: no aspirin today Allergies/Adverse Reactions: tape Allergy (Mild, Uncoded 03/23/25 18:45) Skin Irritation Home Medications: Albuterol Common Canister [Ventolin Common Canister] 2 puff IH Q4H PRN 01/26/21 [History] Gabapentin 800 mg PO TID 01/26/21 [History] Fluticasone Propionate [Flovent 110 Mcg MDI] 2 puff IH BID 03/23/25 [History] Guaifenesin [Mucinex] 600 mg PO DAILY 03/23/25 [History] Levothyroxine Sodium 100 Mcg [Synthroid 100 Mcg] 125 mcg PO DAILY 03/23/25 [History] Losartan Potassium 50 mg [Cozaar 50 MG] 50 mg PO DAILY 03/23/25 [History] Metformin HCl 500 mg [Glucophage 500 MG] 500 mg PO BIDWM 03/23/25 [History] Oxycodone/APAP 5 mg/325 mg [Percocet Tablet 5/325Mg] 1.5 tab PO QID 03/23/25 [History] Rosuvastatin Calcium [Crestor] 10 mg PO HS 03/23/25 [History] Sotalol HCl 80 mg [Betapace 80 MG] 80 mg PO BID 03/23/25 [History] Vitamin B Complex [B-Complex] 1 each PO DAILY 03/23/25 [History] dilTIAZem HCL [Cardizem] 30 mg PO BID 03/23/25 [History] Hx Tetanus, Diphtheria Vaccination/Date Given: Yes Hx Influenza Vaccination/Date Given: Yes Hx Pneumococcal Vaccination/Date Given: Yes Immunizations Up to Date: Yes Travel Risk - International Travel Have you traveled outside of the country in past 3 weeks: No - Emerging Infectious Disease Are you exhibiting symptoms associated with any current EIDs: Yes Symptoms: Shortness of Breath, Vomitting - Review of Systems Constitutional: No Symptoms Eyes: No Symptoms Respiratory: No Symptoms Cardiac: Chest Pain Abdominal/Gastrointestinal: No Symptoms Genitourinary Symptoms: No Symptoms Musculoskeletal: No Symptoms Skin: No Symptoms All Other Systems: Reviewed and Negative - Past Medical History Pertinent Past Medical History: Yes Neurological History: No Pertinent History ENT History: No Pertinent History Cardiac History: Coronary Artery Disease, High Cholesterol, Hypertension, Other Respiratory History: COPD Endocrine Medical History: Diabetes Type II, Hyperthyroidism, Hypothyroidism Musculoskeletal History: Arthritis GI Medical History: No Pertinent History History: No Pertinent History Psycho-Social History: No Pertinent History Female Reproductive Disorders: Cervical Cancer Other Medical History: precancerous pap, A-FIB, Examination Grader: Dr. Jack - Past Surgical History Past Surgical History: Yes Neuro Surgical History: No Pertinent History Cardiac: No Pertinent History Respiratory: No Pertinent History Gastrointestinal: No Pertinent History Genitourinary: No Pertinent History Musculoskeletal: No Pertinent History Female Surgical History: No Pertinent History Other Surgical History: parathyroid removal - Social History Smoking Status: Current every day smoker How long have you smoked: age 12 Exposure to second hand smoke: No Drug Use: none - Social Determinants of Health Will the patient participate in the screening: Declined to provide - Nursing Vital Signs Nursing Vital Signs: Initial Vital Signs Temperature 97.4 F 03/23/25 18:42 Pulse Rate 86 03/23/25 18:42 Respiratory Rate 25 H 03/23/25 18:42 Blood Pressure 171/139 03/23/25 18:42 O2 Sat by Pulse Oximetry 95 03/23/25 18:42 Pain Scale Pain Intensity 0 - Physical Exam General Appearance: no apparent distress Eye Exam: PERRL/EOMI Neck Exam: normal inspection Respiratory Exam: other (Expiratory wheezes bilaterally worse on the right. Diminished breath sounds worse on the right. Sounds of possible consolidation on the right.) Cardiovascular Exam: regular rate/rhythm, normal heart sounds Gastrointestinal/Abdomen Exam: soft, normal bowel sounds, No tenderness Back Exam: normal inspection, normal range of motion Extremity Exam: normal inspection, normal range of motion Neurologic Exam: alert, oriented x 3, cooperative Skin Exam: normal color, warm, dry SpO2: 95 - Course Nursing assessment & vital signs reviewed: Yes Ordered Tests: Active Orders 24 hr Category Date Time Status EKG-ER Only STAT Care 03/23/25 19:45 Active CHEST 1 VIEW (PORTABLE) Stat Exams 03/23/25 19:45 Taken BLOOD CULTURE Stat Lab 03/23/25 20:04 Received CBC W DIFF Stat Lab 03/23/25 19:45 Completed CMP Stat Lab 03/23/25 19:45 Completed D-DIMER QUANTITATIVE Stat Lab 03/23/25 19:45 Completed TROPONIN Q4H Lab 03/23/25 19:45 Completed TROPONIN Q4H Lab 03/24/25 04:00 Ordered TROPONIN Stat Lab 03/23/25 23:00 Completed Respiratory Therapy Assessment DAILY RT 03/23/25 21:38 Active Medication Summary Discontinued Medications Generic Name Dose Route Start Last Admin Trade Name Freq PRN Reason Stop Dose Admin Albuterol Sulfate 2.5 mg 03/23/25 19:47 03/23/25 21:37 Albuterol Solution 2.5 Mg/0.5 Ml Ud Solution 03/23/25 19:48 2.5 mg STAT ONE Administration Albuterol Sulfate Confirm 03/23/25 21:29 Albuterol Sulfate 2.5 Mg/3 Ml Neb Administered 03/23/25 21:30 Dose 2.5 mg IH .STK-MED ONE Albuterol/Ipratropium 3 ml 03/23/25 19:47 03/23/25 21:32 Ipratropium/Albuterol Sulfate 3 Ml Ampul.Neb 03/23/25 19:48 3 ml STAT ONE Administration Albuterol/Ipratropium Confirm 03/23/25 21:29 Ipratropium/Albuterol Sulfate 3 Ml Ampul.Neb Administered 03/23/25 21:30 Dose 3 ml IH .STK-MED ONE Lab/Rad Data: Laboratory Result Diagrams 03/23/25 19:45 03/23/25 19:45 Laboratory Results 03/23/25 03/23/25 03/23/25 Range/Units 23:00 19:45 19:45 WBC (3.98-10.04) x10^3/uL RBC (3.93-5.22) x10^6/uL Hgb (11.2-15.7) g/dL Hct (34.1-44.9) % MCV (79.4-94.8) fL MCH (25.6-32.2) pg MCHC (32.2-35.5) g/dL RDW (11.7-14.4) % Plt Count (182-369) x10^3/uL MPV (9.4-12.3) fL Gran % (34.0-71.1) % Immature Gran % (Auto) (0.001-0.429) % Nucleat RBC Rel Count (0.00-0.2) % Eos # (Auto) (0.04-0.36) x10^3/uL Immature Gran # (Auto) (0.001-0.031) x10^3u/L Absolute Lymphs (auto) (1.18-3.74) x10^3/uL Absolute Monos (auto) (0.24-0.86) x10^3/uL Absolute Nucleated RBC (0.00-0.012) x10^3u/L Lymphocytes % (19.3-51.7) % Monocytes % (4.7-12.5) % Eosinophils % (0.7-5.8) % Basophils % (0.1-1.2) % Absolute Granulocytes (1.56-6.13) x10^3/uL Basophils # (0.01-0.08) x10^3/uL D-Dimer 0.43 (0.0-0.50) mg/L Sodium (135-145) mmol/L Potassium (3.5-5.1) mmol/L Chloride (98-107) mmol/L Carbon Dioxide (22-30) mmol/L Anion Gap (5-15) MEQ/L BUN (7-17) mg/dL Creatinine (0.52-1.04) mg/dL Estimated GFR ML/MIN Glucose (74-106) mg/dL Calcium (8.4-10.2) mg/dL Total Bilirubin (0.2-1.3) mg/dL AST (14-36) U/L ALT (0-35) U/L Alkaline Phosphatase (38-126) U/L Troponin I < 0.012 < 0.012 (0.000-0.033) ng/mL Serum Total Protein (6.3-8.2) g/dL Albumin (3.5-5.0) g/dL 03/23/25 03/23/25 Range/Units 19:45 19:45 WBC 10.5 H (3.98-10.04) x10^3/uL RBC 4.27 (3.93-5.22) x10^6/uL Hgb 13.8 (11.2-15.7) g/dL Hct 41.1 (34.1-44.9) % MCV 96.3 H (79.4-94.8) fL MCH 32.3 H (25.6-32.2) pg MCHC 33.6 (32.2-35.5) g/dL RDW 13.1 (11.7-14.4) % Plt Count 270 (182-369) x10^3/uL MPV 9.9 (9.4-12.3) fL Gran % 59.6 (34.0-71.1) % Immature Gran % (Auto) 0.3 (0.001-0.429) % Nucleat RBC Rel Count 0.0 (0.00-0.2) % Eos # (Auto) 0.37 H (0.04-0.36) x10^3/uL Immature Gran # (Auto) 0.03 (0.001-0.031) x10^3u/L Absolute Lymphs (auto) 2.98 (1.18-3.74) x10^3/uL Absolute Monos (auto) 0.79 (0.24-0.86) x10^3/uL Absolute Nucleated RBC 0.00 (0.00-0.012) x10^3u/L Lymphocytes % 28.5 (19.3-51.7) % Monocytes % 7.6 (4.7-12.5) % Eosinophils % 3.5 (0.7-5.8) % Basophils % 0.5 (0.1-1.2) % Absolute Granulocytes 6.23 H (1.56-6.13) x10^3/uL Basophils # 0.05 (0.01-0.08) x10^3/uL D-Dimer (0.0-0.50) mg/L Sodium 143 (135-145) mmol/L Potassium 3.9 (3.5-5.1) mmol/L Chloride 107 (98-107) mmol/L Carbon Dioxide 26 (22-30) mmol/L Anion Gap 14.2 (5-15) MEQ/L BUN 16 (7-17) mg/dL Creatinine 0.65 (0.52-1.04) mg/dL Estimated GFR 95.3 ML/MIN Glucose 100 (74-106) mg/dL Calcium 9.5 (8.4-10.2) mg/dL Total Bilirubin 0.20 (0.2-1.3) mg/dL AST 75 H (14-36) U/L ALT 22 (0-35) U/L Alkaline Phosphatase 89 (38-126) U/L Troponin I (0.000-0.033) ng/mL Serum Total Protein 6.2 L (6.3-8.2) g/dL Albumin 4.1 (3.5-5.0) g/dL - Progress Progress: improved Progress Note: Patient did not have any chest pain while she was here. It resolved pretty much upon arrival. EKG was done and showed no acute findings. Her initial troponin showed undetectable. As that her second 1 3 hours later. Her pain is resolved. Given that she has a negative troponins and normal EKGs I think we can say that this is not cardiac or if it is it is very stable.Patient was discharged home in stable condition. Also on the differential was COVID flu pneumonia pulmonary embolism was thought evidence less likely.It could be musculoskeletal chest pain. Or GERD.I believe that it is most likely esophagitis. 03/24/25 00:17 - Departure Departure Disposition: Home Clinical Impression: Esophagitis Condition: Stable Critical Care Time: No Referrals: JOYCE FLOR FNP [Primary Care Provider, UNKNOWN] - Follow up/PCP as directed Instructions: Esophagitis
[2025-03-23 20:20] LABS: Absolute Neutrophil Ct (ANC) 6.23 x10^3/uL (1.56-6.13); BASOPHIL % 0.5 % (0.1-1.2); Basophil (Absolute #) 0.05 x10^3/uL (0.01-0.08); Eosinophil % 3.5 % (0.7-5.8); Eosinophil (Absolute #) 0.37 x10^3/uL (0.04-0.36); Hematocrit 41.1 % (34.1-44.9); Hemoglobin 13.8 g/dL (11.2-15.7); IMMATURE GRAN # 0.03 x10^3u/L (0.001-0.031); IMMATURE GRAN % 0.3 % (0.001-0.429); Lymphocyte (Absolute #) 2.98 x10^3/uL (1.18-3.74); Lymphocytes % 28.5 % (19.3-51.7); Mean Cell Volume 96.3 fL (79.4-94.8); Mean Corpuscular Hemoglobin 32.3 pg (25.6-32.2); Mean Corpuscular Hgb Concent. 33.6 g/dL (32.2-35.5); Mean Platelet Volume 9.9 fL (9.4-12.3); Monocyte (Absolute #) 0.79 x10^3/uL (0.24-0.86); Monocytes % 7.6 % (4.7-12.5); Neutrophil % 59.6 % (34.0-71.1); Platelet Count 270 x10^3/uL (182-369); Red Blood Count 4.27 x10^6/uL (3.93-5.22); Red Cell Distribution Width 13.1 % (11.7-14.4); White Blood Count 10.5 x10^3/uL (3.98-10.04)
[2025-03-23 20:37] LABS: ALBUMIN 4.1 g/dL (3.5-5.0); ANION GAP 14.2 MEQ/L (5-15); BILIRUBIN,TOTAL 0.2 mg/dL (0.2-1.3); Calcium 9.5 mg/dL (8.4-10.2); Creatinine 1 0.65 mg/dL (0.52-1.04); EST GLOMERULAR FILTRATION RATE 95.3 ML/MIN; Potassium 3.9 mmol/L (3.5-5.1); Total Protein 6.2 g/dL (6.3-8.2)
[2025-03-23] MEDS ORDERED: PROVENTIL 2.5 MG/3 ML NEB IH ONE (21:29)
[2025-03-23] MEDS ORDERED: DUONEB 0.5-3 MG/3 ml Neb IH ONE (21:29)
[2025-03-23] MEDS: DUONEB 0.5-3 MG/3 ml Neb IH ONE (21:32)
[2025-03-23] MEDS: PROVENTIL Solution 2.5 MG/0.5 ML IH ONE (21:37)
[2025-03-24 00:05] VITALS: BP 126/77; PULSE 78; RESP 13
[2025-03-24 00:16] VITALS: O2SAT 95
--- NOTE | 2025-03-24 08:45 | XRAY ---
Indication: Chest pain. Comparison: None Portable chest demonstrates normal heart and lungs. Bony thorax intact. No acute findings.
== END 2025-03-24 00:35 | disposition home or self-care (01) ==
LOC: ED 18:40
DX: K20.90 Esophagitis, unspecified without bleeding (principal); R07.9 Chest pain, unspecified; E78.5 Hyperlipidemia, unspecified; I10 Essential (primary) hypertension; E11.9 Type 2 diabetes mellitus without complications; Z79.84 Long term (current) use of oral hypoglycemic drugs; Z79.891 Long term (current) use of opiate analgesic; Z79.899 Other long term (current) drug therapy; Z72.0 Tobacco use
CPT/HCPCS: 36415; 71045; 80053; 84484; 85025; 85379; 87040; 93005; 94640; 99283; 99285; J7609; A9270-GY

== ENCOUNTER 2025-06-25 08:53 | Day surgery (SDC) | payer MEDICARE ==
[2025-06-25] MEDS ORDERED: LIDOCAINE HCL 2% 100 MG/5 ML IJ ONE (08:54)
[2025-06-25] MEDS ORDERED: propofoL IV ONE (11:02)
--- NOTE | 2025-06-25 12:14 | XRAY ---
Indication: Left C2-C4 MBB. Intraoperative fluoroscopy provided for 12 seconds. 4 digital spot image submitted for interpretation demonstrates posterior needle tips projecting over expected left C2-C4 nerve roots. Correlate with intraoperative findings/report.
[2025-06-25] MEDS ORDERED: Lactated Ringers 1,000 ML IV ONE (12:18)
--- NOTE | 2025-06-25 12:18 | XRAY ---
12 seconds of fluoroscopy was used in surgery for a left C2-C4 MBB.
== END 2025-06-25 11:33 | disposition home or self-care (01) ==
LOC: SDC-PAIN 08:53
PROVIDERS: ATTEND Psychiatry & Neurology Pain Medicine
DX: M47.812 Spondylosis without myelopathy or radiculopathy, cervical region (principal); E11.9 Type 2 diabetes mellitus without complications

== ENCOUNTER 2025-09-30 09:31 | Day surgery (SDC) | payer MEDICARE ==
[2025-09-30] MEDS ORDERED: LIDOCAINE HCL 1% 50 MG/5 ML VL IJ ONE (09:32)
[2025-09-30] MEDS ORDERED: BUPIVACAINE 0.5% VIAL IJ ONE (09:32)
[2025-09-30] MEDS ORDERED: propofoL IV ONE (11:38)
--- NOTE | 2025-09-30 13:58 | XRAY ---
Indication: Left C2-C4 RFA. Intraoperative fluoroscopy provided for 21 seconds. 4 digital spot image submitted for interpretation demonstrates posterior needle tips projecting over expected left C2-C4 nerve roots. Correlate with intraoperative findings/report.
--- NOTE | 2025-09-30 14:00 | XRAY ---
21 seconds of fluoroscopy was used in surgery for a left C2-C4 RFA.
[2025-09-30] MEDS ORDERED: Lactated Ringers 1,000 ML IV ONE (14:02)
== END 2025-09-30 12:05 | disposition home or self-care (01) ==
LOC: SDC-PAIN 09:31
PROVIDERS: ATTEND Psychiatry & Neurology Pain Medicine
DX: M47.812 Spondylosis without myelopathy or radiculopathy, cervical region (principal); E11.9 Type 2 diabetes mellitus without complications